=== PATIENT | male | born 1995 | race Caucasian/White ===

== ENCOUNTER 2025-07-04 09:53 | Emergency (ER) | payer SELFPAY ==
[~2025-07-04] VITALS: Ht 175.3 cm; Wt 72.0 kg
[2025-07-04 09:58] VITALS: O2SAT 99
[2025-07-04] MEDS: HYDROCODONE/ACETAMINOPHEN 10/325MG TABLET PO ONE (10:41)
[2025-07-04] MEDS: ONDANSETRON 4MG ODT PO ONE (11:48)
[2025-07-04] MEDS: LIDOCAINE HCL 1% 20ML VIAL INFIL ONE (11:49)
[2025-07-04] MEDS ORDERED: AMOX1TAB16 MT (12:59)
[2025-07-04] MEDS ORDERED: IBUP-2030 MT (12:59)
[2025-07-04 13:25] VITALS: BP 128/81; PULSE 58; RESP 16; TEMP 36.8; O2SAT 99
== END 2025-07-04 13:30 | disposition home or self-care (01) ==
LOC: ER 10:10
DX: S61.210A Laceration without foreign body of right index finger without damage to nail, initial encounter (principal); X58.XXXA Exposure to other specified factors, initial encounter; Y93.89 Activity, other specified; Y92.89 Other specified places as the place of occurrence of the external cause; Y99.8 Other external cause status
CPT/HCPCS: 73130; 12002; 99283; Q0162; J2003; Z7610 ×2; A4606